=== PATIENT | female | born 1970 ===

== ENCOUNTER 2017-08-25 20:49 | Emergency (ER) | payer MEDICAID, OTHER ==
[2017-08-25 21:05] VITALS: BMI 23.8
[2017-08-25] MEDS ORDERED: TDAP Vaccine 0.5 mL Syr IM ONE (21:52)
[2017-08-25] MEDS ORDERED: LIDOCAIN/EPI 1-0.001% 10ML INJ SOL IJ ONE (21:53)
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
[2017-08-25 23:17] VITALS: BP 114/70; PULSE 88; RESP 18; TEMP 98.1; O2SAT 98
== END 2017-08-25 23:41 | disposition home or self-care (01) ==
LOC: ED 20:49
DX: S81.811A Laceration without foreign body, right lower leg, initial encounter (principal); Y09 Assault by unspecified means; Z23 Encounter for immunization; F17.210 Nicotine dependence, cigarettes, uncomplicated

== ENCOUNTER 2017-09-06 18:21 | Emergency (ER) | payer MEDICAID, OTHER ==
[2017-09-06 18:51] VITALS: BP 127/80; PULSE 72; RESP 18; TEMP 97.9; O2SAT 100; BMI 21.9
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
--- NOTE | 2017-09-07 09:39 | RAD ---
PROCEDURE: Left Ankle Radiographs. HISTORY: pain COMPARISON: None FINDINGS: BONES: Normal. No fracture. JOINTS: Normal. No osteoarthritis. Ankle mortise maintained. Talar dome intact SOFT TISSUES: Normal. OTHER FINDINGS: None. IMPRESSION: Normal left ankle radiographs.
== END 2017-09-06 20:25 | disposition home or self-care (01) ==
LOC: ED 18:21
DX: M25.572 Pain in left ankle and joints of left foot (principal); Z48.02 Encounter for removal of sutures